=== PATIENT | male | born 1970 | race Caucasian/White ===

== ENCOUNTER → 2016-05-24 | Outpatient (CLI) | payer BC ==
--- NOTE | 2016-05-28 10:47 | ECHOF ---
Referral Reason:R07.89 chest pain MEASUREMENTS -------- HEIGHT: 188.0 cm WEIGHT: 99.8 kg BP: IVSd: 1.3 cm (0.6 - 1.1) LVIDd: 3.4 cm (3.9 - 5.3) LVPWd: 1.5 cm (0.6 - 1.1) IVSs: 1.8 cm LVIDs: 2.0 cm LVPWs: 2.0 cm Ao Diam: 3.4 cm (2.0 - 3.7) AV Cusp: 2.2 cm (1.5 - 2.6) LA Diam: 2.9 cm (2.7 - 3.8) MV EXCURSION: 14.230 mm (> 18.000) MV EF SLOPE: 83 mm/s (70 - 150) EPSS: 0.5 cm MV E Vincent: 1.06 m/s MV DecT: 244 ms MV A Vincent: 0.93 m/s MV E/A Ratio: 1.15 RAP: 5.00 mmHg RVSP: 17.98 mmHg FINDINGS -------- Sinus rhythm. This was a technically good study. There is moderate concentric left ventricular hypertrophy. Overall left ventricular systolic function is normal with, an EF between 55 - 60 %. The right ventricle is normal in size. The left atrium is normal in size. The right atrium is normal in size. The aortic valve is trileaflet, and appears structurally normal. No aortic stenosis or regurgitation. The mitral valve leaflets are mildly thickened. There is trace mitral regurgitation. Trace tricuspid regurgitation present. The right ventricular systolic pressure, as measured by Doppler, is 17.98mmHg. Pulmonic valve appears structurally normal. The aortic root size is normal. The pericardium is normal. CONCLUSIONS -------- 1. Sinus rhythm. 2. There is trace mitral regurgitation. 3. Trace tricuspid regurgitation present. 4. The right ventricular systolic pressure, as measured by Doppler, is 17.98mmHg. 5. Pulmonic valve appears structurally normal. 6. The aortic root size is normal. 7. The pericardium is normal. 8. This was a technically good study. 9. There is moderate concentric left ventricular hypertrophy. 10. Overall left ventricular systolic function is normal with, an EF between 55 - 60 %. 11. The right ventricle is normal in size. 12. The left atrium is normal in size. 13. The right atrium is normal in size. 14. The aortic valve is trileaflet, and appears structurally normal. No aortic stenosis or regurgitation. 15. The mitral valve leaflets are mildly thickened. PRINCIPAL CONSULTANT: Mariama Lindsey RDCS
== END | disposition home or self-care (01) ==
LOC: RADECHMAIN 13:43
PROVIDERS: ATTEND Family Medicine
DX: I08.1 Rheumatic disorders of both mitral and tricuspid valves (principal)
CPT/HCPCS: 93306

== ENCOUNTER → 2017-03-15 | Outpatient (CLI) | payer BC, OTHER ==
--- NOTE | 2017-03-15 13:16 | US ---
EXAMINATION TYPE: US venous doppler duplex LE RT DATE OF EXAM: 03/15/2017 12:57 PM COMPARISON: NONE CLINICAL HISTORY: M79.661 PAIN IN RT LOWER LIMB. No pain or swelling. No redness. No hx of blood cl ots or on blood thinners. SIDE PERFORMED: Right TECHNIQUE: The lower extremity deep venous system is examined utilizing real time linear array sonog yadi with graded compression, doppler sonography and color-flow sonography. VESSELS IMAGED: External Iliac Vein (EIV) Common Femoral Vein Deep Femoral Vein Greater Saphenous Vein * Femoral Vein Popliteal Vein Small Saphenous Vein * Proximal Calf Veins (* superficial vessels) Grayscale, color doppler, spectral doppler imaging performed of the deep veins of the lower extremiti es. There is normal flow, compressibility, vascular waveforms. Right Leg: Negative for DVT IMPRESSION: No sonographic evidence of deep venous arthrosis within the right lower extremity.
== END | disposition home or self-care (01) ==
LOC: RADUSWWP 12:12
PROVIDERS: ATTEND Family Medicine
DX: M79.661 Pain in right lower leg (principal)

== ENCOUNTER → 2019-03-19 | Outpatient (CLI) | payer BC ==
--- NOTE | 2019-03-20 08:46 | XR ---
EXAMINATION TYPE: XR chest 2V DATE OF EXAM: 03/19/2019 COMPARISON: 10/05/2014 HISTORY: Hemoptysis and shortness of breath TECHNIQUE: Frontal and lateral views of the chest are obtained. FINDINGS: There is no focal air space opacity, pleural effusion, or pneumothorax seen. The lateral v iew demonstrates some peribronchial cuffing. The cardiac silhouette size is within normal limits. T he osseous structures are intact. IMPRESSION: Peribronchial cuffing seen on the lateral view only minimally can relate to reactive air way disease or bronchitis.
== END | disposition home or self-care (01) ==
LOC: RADXRMAIN 16:10
PROVIDERS: ATTEND Nurse Practitioner Family
DX: R91.8 Other nonspecific abnormal finding of lung field (principal); R06.02 Shortness of breath; R04.2 Hemoptysis
CPT/HCPCS: 71046

== ENCOUNTER → 2020-04-24 | Outpatient (CLI) | payer BC ==
--- NOTE | 2020-04-24 16:35 | CONS ---
CONSULTATION DATE OF SERVICE: 04/24/2020 This 49-year-old gentleman had been evaluated in Sleep Center for obstructive sleep apnea-hypopnea syndrome and excessive daytime sleepiness. HISTORY OF PRESENT ILLNESS/SLEEP-WAKE EVALUATION: Patient had been diagnosed with obstructive sleep apnea in the past, many years ago, was tried on treatment with CPAP, but he was not able to tolerate it at that time. Presently, his sleep schedule from 11 p.m. to 5 a.m. 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 During sleep, he has very loud snoring, witnessed episodes of stopped breathing during sleep. He grinds teeth. He has episodes of gasping for air, sweating. He wakes up from sleep several times with one episode of nocturia. In the morning, the patient wakes up tired, has difficulties to pay attention, falling asleep during the day, worries about his sleep, has problems with memory, concentration, irritability. [place] Sleepiness Scale significantly increased to 15. PAST MEDICAL HISTORY: Positive for hypertension, cardiomyopathy. PAST SURGICAL HISTORY: Left eye surgery in childhood, left shoulder surgery in 2004. MEDICATIONS: None at the present time. SOCIAL HISTORY: Positive for smoking; quit 12 years ago. Alcohol consumption none. FAMILY HISTORY: Asthma, epilepsy, sleep apnea, mental illness, diabetes, restless legs. REVIEW OF SYSTEMS: Loud snoring, multiple awakenings from sleep, sleepiness during the day. PHYSICAL EXAMINATION: GENERAL: gentleman without distress. VITAL SIGNS: BP 128/81, HR 74, RR 12, height 6 feet 4 inches, weight 226.6 pounds, temperature 97.1, oxygen saturation at room air 97%. HEENT: PERRLA, EOMI. Oropharynx extremely low position of soft palate, Mallampati 4, significant retrognathia. NECK: Wide at 18-1/2 inches in circumference. LUNGS: Clear to percussion and to auscultation. Good air exchange. No wheezing or rhonchi. HEART: S1, S2 regular. No murmurs, gallops, or rubs. ABDOMEN: Soft and nontender. Bowel sounds are present. No organomegaly appreciated. EXTREMITIES: No clubbing or cyanosis. BLOCK GREASER: Awake, alert, and oriented X3. Cranial nerves 2 to 7 intact. There is no fasciculation or atrophy. noted. No focal deficits observed. IMPRESSION: 1. Loud snoring, witnessed episodes of sleep apnea, history of obstructive sleep apnea in the past, extremely low position of soft palate, Mallampati 4, wide neck 18-1/2 inches in circumference, sleepiness, [place] Sleepiness Scale 15, obstructive sleep apnea-hypopnea syndrome. 2. Hypertension. 3. History of cardiomyopathy. 4. Status post rhinoplasty. 5. Status post left shoulder surgery. 6. Status post left eye surgery. PLAN: 1. Home sleep apnea test. 2. CPAP/BiPAP titration if sleep study confirms obstructive sleep apnea-hypopnea syndrome. 3. Preferable position during sleep on the side. 4. No driving if patient feels any sleepiness. 5. I will see patient for follow up visit to explain results of testing and following plan. Thank you very much for referring this patient for consultation. Sincerely, Dedrick Sam MD, PhD, FAASM Diplomat of [place] [employer] [place] [employer] Cabinet Assembler of [facility] [place] MMODL / JOSETTEN: [id number] /
== END | disposition home or self-care (01) ==
LOC: SLEEP 13:49
PROVIDERS: ATTEND Internal Medicine
DX: G47.33 Obstructive sleep apnea (adult) (pediatric) (principal); I10 Essential (primary) hypertension; Z99.89 Dependence on other enabling machines and devices; Z86.79 Personal history of other diseases of the circulatory system; Z98.890 Other specified postprocedural states
CPT/HCPCS: 99211

== ENCOUNTER → 2020-06-04 | Outpatient (CLI) | payer BC ==
--- NOTE | 2020-06-04 12:18 | SFUN ---
SLEEP CENTER FOLLOW UP NOTE DATE OF SERVICE: 06/04/2020 This 49-year-old gentleman had been followed in Sleep Center for treatment of obstructive sleep apnea-hypopnea syndrome with significant excessive daytime sleepiness. Recently, patient had a home sleep apnea test which showed apnea-hypopnea index 11.4 with oxygen desaturation to 83% and subsequently with symptoms of excessive daytime sleepiness, patient was started on treatment with CPAP. Today is his first visit after he started to use CPAP. According to patient, after he started to use CPAP, he feels more refreshed in the morning after awakenings from sleep, but at the same time he developed nightmares. The patient has history of nightmares many years ago, but he did not have it since that time after he started to use CPAP. I extensively discussed with the patient the possibility that CPAP increased the amount of REM sleep for patient with obstructive sleep apnea after sleep apnea started to be treated. We do not have a clear information about the amount of REM sleep before and after treatment because we did not do any polysomnogram. Patient had only home sleep apnea test. I checked his CPAP unit. Range of the pressure 5-18. The average pressure 11.7, usage 28 out of 29 and 21 out of 29 more than 4 hours. Average 5.6 hours per night. Leak is 14 L/minute which is borderline. Apnea-hypopnea index is 0.9, which is absolutely normal. [place] Sleepiness Scale slightly decreased to 15 before treatment to 13 today. MEDICATIONS: None. PHYSICAL EXAMINATION: GENERAL: Patient in no distress. VITAL SIGNS: BP 117/79, HR 77, RR 15, oxygen saturation at room air 96%, weight 226, temperature 98.0. HEENT: PERRLA, EOMI. Oropharynx extremely low position of soft palate. Mallampati 4 NECK: Supple, no JVD. Thyroid is not palpable. LUNGS: Clear to percussion and to auscultation. Good air exchange. No wheezing or rhonchi. HEART: S1, S2 regular. No murmurs, gallops, or rubs. ABDOMEN: Soft and nontender. Bowel sounds are present. No organomegaly appreciated. EXTREMITIES: No clubbing or cyanosis. 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 Cranial nerves 2 to 7 intact. There is no fasciculation or atrophy. noted. No focal deficits observed. IMPRESSION: 1. Mild obstructive sleep apnea-hypopnea syndrome by results of home sleep apnea test which might underestimate severity of sleep apnea. Patient improved his alertness on CPAP. He feels better after awakenings in the morning, but still continued to feel sleepiness during the day. [place] Sleepiness Scale was 13 today, previously was 15. 2. Patient his history of nightmares many years ago and he started to have nightmares after started treatment with CPAP, possibly relationship to changing amount of REM sleep on CPAP, but we can not analyze that no results of polysomnogram, patient home sleep apnea test. 3. History of cardiomyopathy. 4. Status post rhinoplasty. 5. Status post left shoulder surgery. 6. Status post left eye surgery. 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 I changed maximal pressure in the CPAP unit down to 13 cm of water, so now it is from 5-13 cm of water. 2. Patient will continue to use PAP equipment every night for the whole night. 3. Sleep hygiene with regular time in bed for at least 7-1/2 to 8 hours. 4. Precautions related to driving. No driving if feeling sleepiness. 5. I will maintain all necessary prescription for PAP supplies including mask, tube, filters. 6. Watching weight. 7. Follow-up visit in 2 months or earlier if patient has any problems. 8. Patient could be a candidate for PSG on CPAP with the following multiple sleep latency test as he continued to feel sleepiness during the day. Thank you very much for allowing me to participate in management of your patient. Sincerely, Dedrick Sam MD, PhD, FAASM Diplomat of [place] [employer] [place] [employer] Government Employee of [facility] [place] MMODL / JOSETTEN: [id number] /
== END | disposition home or self-care (01) ==
LOC: SLEEP 10:31
PROVIDERS: ATTEND Internal Medicine
DX: G47.33 Obstructive sleep apnea (adult) (pediatric) (principal); Z99.89 Dependence on other enabling machines and devices; Z98.890 Other specified postprocedural states; Z86.79 Personal history of other diseases of the circulatory system; Z86.59 Personal history of other mental and behavioral disorders

== ENCOUNTER → 2020-07-23 | Outpatient (CLI) | payer BC ==
--- NOTE | 2020-07-23 23:13 | SFUN ---
SLEEP CENTER FOLLOW UP NOTE DATE OF SERVICE: 07/23/2020 The 49-year-old gentleman had been followed in Sleep Center for treatment of obstructive sleep apnea-hypopnea syndrome. The patient has significant problems with his CPAP treatment because there is a leak from the mask to the eye area. He is using an AirFit N30 under the nose mask and although it is under the nose, but for some reason he still has leak to the eye area. I checked his CPAP unit. Range of the pressure 5-13, average 11.8, usage is 18 out of 30 nights for more than 4 hours, average 6.8 hours per night. Leak is 8 L/minute which is acceptable. Apnea-hypopnea index 0.7, which is totally normal. [place] Sleepiness Scale is 10. PHYSICAL EXAM: Patient in no distress. BP 151/94, HR 67, RR 16, weight 227.8, temperature 98.1. Oxygen saturation at room air 98%. HEENT: PERRLA, EOMI. Oropharynx extremely low position of soft palate. Mallampati 4. NECK: Supple, no JVD. Thyroid is not palpable. LUNGS: Clear to percussion and to auscultation. Good air exchange. No wheezing or rhonchi. HEART: S1, S2 regular. No murmurs, gallops, or rubs. ABDOMEN: Soft and nontender. Bowel sounds are present. No organomegaly appreciated. EXTREMITIES: No clubbing or cyanosis. 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 Cranial nerves 2 to 7 intact. There is no fasciculation or atrophy. noted. No focal deficits observed. IMPRESSION: 1. Obstructive sleep apnea-hypopnea syndrome. The patient has problems with a CPAP mask secondary to leak to the eye area. Normal aspiration with the machine. 2. History of nightmares. 3. History of cardiomyopathy. 4. Status post rhinoplasty. 5. Status post left shoulder surgery. 6. Status post left eye surgery. 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 Fit patient with a different mask which has nasal pillows. Subsequently should prevent any leak from the mask to the eye area. We gave the patient a sample of that mask, it is a Fit B30 nasal pillows. 2. Patient will continue to use PAP equipment every night for the whole night. 3. Sleep hygiene with regular time in bed for at least 7-1/2 to 8 hours. 4. Precautions related to driving. No driving if feeling sleepiness. 5. I will maintain all necessary prescription for PAP supplies including mask, tube, filters. 6. Watching weight. 7. Follow-up visit in 6 months or earlier if patient has any problems. Thank you very much for allowing me to participate in management of your patient. Sincerely, Dedrick Sam MD, PhD, FAASM Diplomat of [place] [employer] [place] [employer] Door Closer Mechanic of [facility] [place] MMODL / JOSETTEN: [id number] /
== END ==
LOC: SLEEP 11:02
PROVIDERS: ATTEND Internal Medicine
DX: G47.33 Obstructive sleep apnea (adult) (pediatric) (principal); F51.5 Nightmare disorder; Z98.890 Other specified postprocedural states; Z86.79 Personal history of other diseases of the circulatory system; Z91.041 Radiographic dye allergy status; Z87.891 Personal history of nicotine dependence

== ENCOUNTER 2020-11-14 15:56 | Emergency (ER) | payer BC ==
[2020-11-14 17:10] VITALS: TEMP 98.3
[2020-11-14] MEDS ORDERED: MORPHINE SULFATE 2 MG/ML SYRINGE IVP STA (17:58)
[2020-11-14 18:22] LABS: Basophils % (A) 0 %; Eosinophils # (A) 0.2 k/uL (0-0.7); Eosinophils % (A) 3 %; HCT 43.8 % (39.0-53.0); HGB 15.1 gm/dL (13.0-17.5); Lymphocytes # (A) 2.6 k/uL (1.0-4.8); Lymphocytes % (A) 34 %; MCH 30.8 pg (25.0-35.0); MCHC 34.5 g/dL (31.0-37.0); MCV 89.4 fL (80.0-100.0); Mean Platelet Volume 8.1; Monocytes # (A) 0.5 k/uL (0-1.0); Monocytes % (A) 6 %; Neutrophils # (A) 4.2 k/uL (1.3-7.7); Neutrophils % (A) 55 %; Platelet Count 213 k/uL (150-450); WBC 7.6 k/uL (3.8-10.6)
[2020-11-14 18:30] LABS: ALT 51 U/L (4-49); AST 31 U/L (17-59); African American GFR (CKD) >90 (>60 ml/min/1.73 sqM); Albumin 4.8 g/dL (3.5-5.0); Alkaline Phosphatase 92 U/L (38-126); Anion Gap 10 mmol/L; Blood Urea Nitrogen 16 mg/dL (9-20); Calcium 9.8 mg/dL (8.4-10.2); Carbon Dioxide 25 mmol/L (22-30); Chloride 103 mmol/L (98-107); Glucose 95 mg/dL (74-99); Non-African American GFR(CKD) >90 (>60 ml/min/1.73 sqM); Potassium 3.9 mmol/L (3.5-5.1); Sodium 138 mmol/L (137-145); Total Bilirubin 0.5 mg/dL (0.2-1.3); Total Protein 7.5 g/dL (6.3-8.2)
[2020-11-14 18:33] LABS: Partial Thromboplastin Time 22.8 sec (22.0-30.0); Prothrombin Time 10.4 sec (9.0-12.0)
[2020-11-14] MEDS ORDERED: diphenhydrAMINE 50 MG/ML 1 ML VIAL IVP STA (19:26)
[2020-11-14] MEDS ORDERED: FAMOTIDINE 20 MG/2 ML VIAL IV STA (19:26)
[2020-11-14] MEDS ORDERED: methylPREDNISolone SOD SUCCI 125 MG/2 ML VIAL IV STA (19:26)
--- NOTE | 2020-11-14 21:04 | CT ---
EXAMINATION TYPE: CT angio thor/abd pel aorta DATE OF EXAM: 11/14/2020 COMPARISON: Chest radiograph 03/19/2019 HISTORY: concern for aortic dissection CT DLP: 1283.2 mGycm. Automated Exposure Control for Dose Reduction was Utilized. CONTRAST: CT scan of the thorax, abdomen and pelvis is performed with IV Contrast, patient injected with 100 mL of Isovue 370. FINDINGS: LUNGS: The lungs are grossly clear, there is no concerning parenchymal mass or nodule identified. T here is no pleural effusion or pneumothorax seen. Subcutaneous emphysematous changes. The tracheobro nchial tree is patent. MEDIASTINUM: There are no greater than 1 cm hilar or mediastinal lymph nodes. No pericardial effusi on is seen. No aortic dissection flap, intramural hematoma or aneurysm. OTHER: No additional significant abnormality is seen. LIVER/GB: No significant abnormality is appreciated. PANCREAS: No significant abnormality is seen. SPLEEN: No significant abnormality is seen. ADRENALS: No significant abnormality is seen. KIDNEYS: No significant abnormality is seen. BOWEL: No significant abnormality is seen. GENITAL ORGANS: No gross abnormality seen. LYMPH NODES: No greater than 1cm abdominal or pelvic lymph nodes are appreciated. OSSEOUS STRUCTURES: No significant abnormality is seen. OTHER: No significant additional abnormality is seen. IMPRESSION: 1. No aortic dissection flap, intramural hematoma or aneurysm. 2. No acute osseous fracture, abnormal fluid collection, or evidence of solid organ injury in the th orax, abdomen, or pelvis.
--- NOTE | 2020-11-14 21:19 | ED ---
General Adult HPI - General Chief complaint: Chest Pain Stated complaint: Chest and arm pain Time Seen by Provider: 11/14/20 17:37 Source: patient, RN notes reviewed, old records reviewed Mode of arrival: wheelchair Limitations: no limitations - History of Present Illness Initial comments: I evaluated the patient when he was placed in a room. Patient is a 50-year-old male with past medical history remarkable for myocarditis from some years ago he presents emergency Department with 2 complaints. He is describing approximately 3 hours prior to arrival a chest pain that he describes as a sharp sensation with radiation towards his back between the shoulder blades. He is also complaining of some left-sided shoulder pain with an electrical sensation shooting down his left arm towards his fingertips. Denies any neck pain. Denies any shortness of breath. 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 States he does not believe he has had these symptoms before. Denies any shortness of breath, fevers, cough, sick contacts. Denies any abdominal pain, nausea, vomiting. Denies any lightheadedness, numbness, weakness. He otherwise has no acute complaints at this time. He describes the pain as a sharp, achy sensation in his chest with radiation as above. Patient presents over concern for possible cardiac etiology. - Related Data Home Medications Medication Instructions Recorded Confirmed Chlorhexidine Gluconate [Peridex] 1 applic DENTAL BID 11/14/20 11/14/20 Multivitamins, Thera [Multivitamin 1 tab PO DAILY 11/14/20 11/14/20 (formulary)] Allergies Allergy/AdvReac Type Severity Reaction Status Date / Time Iodinated Contrast Media Allergy Unknown Verified 11/14/20 18:32 [Iodinated Contrast Media - IV Dye] Review of Systems ROS Statement: Those systems with pertinent positive or pertinent negative responses have been documented in the HPI. Review of Systems: CONST: Denies fever EYES: Denies blurry vision ENT: Denies nasal congestion C/V: Endorses chest pain RESP: Denies shortness of breath GI: Denies abdominal pain : Denies dysuria SKIN: Denies rash. MSK: Endorses left arm pain NEURO: Denies headache ROS Other: All systems not noted in ROS Statement are negative. Past Medical History Past Medical History: Skin Disorder, Sleep Apnea/CPAP/BIPAP Additional Past Medical History / Comment(s): cpap machine broke, "heartburn at times", hemorroids, lt lazy eye, "staph infection scalp,stated its not mrsa), diet controlled hyperlipidemia, kidney stones, cardiomyopathy History of Any Multi-Drug Resistant Organisms: None Reported Past Surgical History: Adenoidectomy, Orthopedic Surgery, Tonsillectomy Additional Past Surgical History / Comment(s): lt eye surgery, lt shoulder sx removed inch oc cllarbones and has titaium pin in place", lt wrist sx,bx on scalp-neg, stomach polyps, deviated septum sx, egd/colonoscpy. Past Anesthesia/Blood Transfusion Reactions: No Reported Reaction Past Psychological History: No Psychological Hx Reported Smoking Status: Never smoker Past Alcohol Use History: Occasional Past Drug Use History: None Reported - Past Family History Father Family Medical History: No Reported History Mother Family Medical History: Hypertension Additional Family Medical History / Comment(s): diverticulisits Sister(s) Additional Family Medical History / Comment(s): ibs General Exam - General Exam Comments Initial Comments: General: Appears in no acute distress. HEAD: Normal with no signs of head trauma. EYES: PERRLA, EOMI, conjunctiva normal, no discharge. ENT: Hearing grossly intact, normal oropharynx. RESPIRATORY: Clear breath sounds bilaterally. No wheezes, rales, or rhonchi. C/V: Regular rate and rhythm. S1 and S2 auscultated, no edema, peripheral pulses 2+ and intact throughout, chest pain is mildly reproducible on palpation. ABD: Abd is soft, nontender, nondistended EXT: Normal range of motion, no obvious deformity. No tenderness palpation of the left upper extremity. he is neurovascularly intact throughout. SKIN: No rashes or lesions observed on exposed skin. NEURO: Alert and oriented x 4. Cranial nerves II-XII intact. No focal sensory or strength deficits. Limitations: no limitations Course Vital Signs 11/14/20 11/14/20 11/14/20 17:06 17:24 20:09 Temperature 98.3 F Pulse Rate 72 67 60 Respiratory 20 20 20 Rate Blood Pressure 157/96 146/98 130/91 O2 Sat by Pulse 98 98 97 Oximetry 11/14/20 21:25 Temperature Pulse Rate 64 Respiratory 18 Rate Blood Pressure 132/87 O2 Sat by Pulse 97 Oximetry Medical Decision Making - Medical Decision Making Based on the patient's presentation and physical exam, I'm concerned for possible cardiac etiology for his current symptoms. Based on patient's story with radiation to his back of his chest pain with associated what appears to be a neurological etiology for his left arm pain, I'm concerned for possible aortic dissection. Therefore we will obtain CTA imaging the chest abdomen pelvis to rule out dissection. We will also obtain a cardiac workup including troponin, EKG, chest x-ray and basic labs. He'll be given morphine for his chest pain at this time, as aspirin will be held pending further workup over concern for possible dissection. He was in agreement this plan. He'll be connected to continuous cardiac crying while he is in the department. Patient's EKG shows no signs of acute ischemia. Patient's lavatory studies are remarkable for a negative troponin and otherwise normal workup. Patient's CTA reveals no aortic dissection flap hematoma or aneurysm. There is no acute etiology or injury seen. On reevaluation, patient's laboratory studies were discussed with the patient as well as his imaging. States this chest pain is improved. His arm pain is also improved. Troponin was obtained greater than 3 hours after arrival therefore do not believe that he requires a second one. Heart score is 2 for age and story. This is low and I do believe it is safer to be discharged home at this time with close follow-up. He was in agreement this plan. I instructed the patient to follow up with their PCP in the next 3 days. I explained that the patient should return to the emergency department if they experience any worsening symptoms. Strict return precautions were discussed with the patient. The patient expressed understanding of these instructions. I answered all questions that the patient had. The patient was discharged home in good condition with their prescriptions and follow up information. - Lab Data Result diagrams: 11/14/20 18:01 11/14/20 18:01 Lab Results 11/14/20 11/14/20 11/14/20 Range/Units 18: 18: 18: WBC 7.6 (3.8-10.6) k/uL RBC 4.90 (4.30-5.90) m/uL Hgb 15.1 (13.0-17.5) gm/dL Hct 43.8 (39.0-53.0) % MCV 89.4 (80.0-100.0) fL MCH 30.8 (25.0-35.0) pg MCHC 34.5 (31.0-37.0) g/dL RDW 12.0 (11.5-15.5) % Plt Count 213 (150-450) k/uL MPV 8.1 Neutrophils % 55 % Lymphocytes % 34 % Monocytes % 6 % Eosinophils % 3 % Basophils % 0 % Neutrophils # 4.2 (1.3-7.7) k/uL Lymphocytes # 2.6 (1.0-4.8) k/uL Monocytes # 0.5 (0-1.0) k/uL Eosinophils # 0.2 (0-0.7) k/uL Basophils # 0.0 (0-0.2) k/uL PT 10.4 (9.0-12.0) sec INR 1.0 (<1.2) APTT 22.8 (22.0-30.0) sec Sodium 138 (137-145) mmol/L Potassium 3.9 (3.5-5.1) mmol/L Chloride 103 (98-107) mmol/L Carbon Dioxide 25 (22-30) mmol/L Anion Gap 10 mmol/L BUN 16 (9-20) mg/dL Creatinine 0.86 (0.66-1.25) mg/dL Est GFR (CKD-EPI)AfAm >90 (>60 ml/min/1.73 sqM) Est GFR (CKD-EPI)NonAf >90 (>60 ml/min/1.73 sqM) Glucose 95 (74-99) mg/dL Calcium 9.8 (8.4-10.2) mg/dL Magnesium 2.0 (1.6-2.3) mg/dL Total Bilirubin 0.5 (0.2-1.3) mg/dL AST 31 (17-59) U/L ALT 51 H (4-49) U/L Alkaline Phosphatase 92 (38-126) U/L Troponin I (0.000-0.034) ng/mL Total Protein 7.5 (6.3-8.2) g/dL Albumin 4.8 (3.5-5.0) g/dL 11/14/20 Range/Units 18:01 WBC (3.8-10.6) k/uL RBC (4.30-5.90) m/uL Hgb (13.0-17.5) gm/dL Hct (39.0-53.0) % MCV (80.0-100.0) fL MCH (25.0-35.0) pg MCHC (31.0-37.0) g/dL RDW (11.5-15.5) % Plt Count (150-450) k/uL MPV Neutrophils % % Lymphocytes % % Monocytes % % Eosinophils % % Basophils % % Neutrophils # (1.3-7.7) k/uL Lymphocytes # (1.0-4.8) k/uL Monocytes # (0-1.0) k/uL Eosinophils # (0-0.7) k/uL Basophils # (0-0.2) k/uL PT (9.0-12.0) sec INR (<1.2) APTT (22.0-30.0) sec Sodium (137-145) mmol/L Potassium (3.5-5.1) mmol/L Chloride (98-107) mmol/L Carbon Dioxide (22-30) mmol/L Anion Gap mmol/L BUN (9-20) mg/dL Creatinine (0.66-1.25) mg/dL Est GFR (CKD-EPI)AfAm (>60 ml/min/1.73 sqM) Est GFR (CKD-EPI)NonAf (>60 ml/min/1.73 sqM) Glucose (74-99) mg/dL Calcium (8.4-10.2) mg/dL Magnesium (1.6-2.3) mg/dL Total Bilirubin (0.2-1.3) mg/dL AST (17-59) U/L ALT (4-49) U/L Alkaline Phosphatase (38-126) U/L Troponin I <0.012 (0.000-0.034) ng/mL Total Protein (6.3-8.2) g/dL Albumin (3.5-5.0) g/dL - EKG Data -: EKG Interpreted by Me EKG Comments: 12-lead Electrocardiogram Interpretation Note EKG was reviewed and interpreted by myself. 12-lead ECG performed at 1602 is interpreted by me as revealing normal sinus rhythm at a rate of 86 beats per minute. Huger is normal. LA intervals 150 ms, QRS duration is 92 ms, QTc is 447 ms.. There were no ST or T wave abnormalities to suggest myocardial ischemia or injury. R wave progression across the precordium was satisfactory. By my interpretation this EKG is non-diagnostic for acute ischemia. Disposition Clinical Impression: Chest pain of unknown etiology, Left shoulder pain, Radicular pain in left arm Disposition: HOME SELF-CARE Condition: Good Instructions (If sedation given, give patient instructions): Chest Pain (ED), Cervical Radiculopathy (ED) Is patient prescribed a controlled substance at d/c from ED?: No Referrals: Marco Lorenz MD [Primary Care Provider] - 1-2 days
[2020-11-14 21:27] VITALS: BP 132/87; PULSE 64; RESP 18
== END 2020-11-14 21:27 | disposition home or self-care (01) ==
LOC: EC 15:56
DX: R07.89 Other chest pain (principal); M25.512 Pain in left shoulder; E78.5 Hyperlipidemia, unspecified; Z91.041 Radiographic dye allergy status; Z87.442 Personal history of urinary calculi; Z90.89 Acquired absence of other organs
CPT/HCPCS: 99285; 96374; 96375 ×3; 36415; 93005; 80053; 83735; 84484; 85025; 85610; 85730; 71275; 74174; J1200; J2930; J2270; Q9967

== ENCOUNTER → 2021-09-11 | Outpatient (CLI) | payer BC ==
--- NOTE | 2021-09-11 13:11 | US ---
EXAMINATION TYPE: US venous doppler duplex LE RT DATE OF EXAM: 09/11/2021 1:01 PM COMPARISON: US CLINICAL HISTORY: M79.661 RT CALF PAIN. Pt states right calf pain, no known prior DVT SIDE PERFORMED: Right TECHNIQUE: The lower extremity deep venous system is examined utilizing real time linear array sonog yadi with graded compression, doppler sonography and color-flow sonography. VESSELS IMAGED: Common Femoral Vein Deep Femoral Vein Greater Saphenous Vein * Femoral Vein Popliteal Vein Small Saphenous Vein * Proximal Calf Veins (* superficial vessels) Right Leg: Negative for DVT Attempted to call Dr's office with results at time of exam- no answer IMPRESSION: No evidence for DVT at this time.
[2021-09-11 22:31] LABS: African American GFR (CKD) 90.2 (60.0-200.0); Albumin 4.1 g/dL (3.8-4.9); Albumin/Globulin Ratio 2.05 (1.60-3.17); Anion Gap 9.6 mmol/L (10.00-18.00); BUN/Creat Ratio 11.18 Ratio (12.00-20.00); Blood Urea Nitrogen 12.3 mg/dL (9.0-27.0); Carbon Dioxide 25.4 mmol/L (20.0-27.5); Magnesium 2.1 mg/dL (1.5-2.4); Non-African American GFR(CKD) 77.9 (60.0-200.0); Potassium 4.1 mmol/L (3.5-5.5); Total Bilirubin 0.4 mg/dL (0.30-1.20); Total Protein 6.1 g/dL (6.2-8.2)
== END | disposition home or self-care (01) ==
LOC: RADUSWWP 12:44
PROVIDERS: ATTEND Family Medicine
DX: M79.661 Pain in right lower leg (principal)
CPT/HCPCS: 80053; 83735

== ENCOUNTER 2021-09-28 12:32 | Emergency (ER) | payer BC, OTHER ==
[2021-09-28 12:40] VITALS: RESP 18; TEMP 98.8
--- NOTE | 2021-09-28 13:12 | ED ---
General Adult HPI - General Chief complaint: Extremity Injury, Lower Stated complaint: [facility]-right leg injury Time Seen by Provider: 09/28/21 12:32 Source: patient, EMS, RN notes reviewed, old records reviewed Mode of arrival: EMS Limitations: no limitations - History of Present Illness Initial comments: This is a 51-year-old male who presents emergency Department complaining that a 200 pound pipe landed on his right lower leg. Patient complains of a little pain medial to the right knee as well as in the proximal tib-fib area. Patient did receive 100 mics of fentanyl from EMS and the way in. Patient denies any ankle pain. Patient's any hip pain. Patient denies any chest pain difficulty breathing or shortness of breath per patient denies any other injury at this time. - Related Data Home Medications Medication Instructions Recorded Confirmed Albuterol Sulfate [Albuterol 1 - 2 puff INHALATION RT-Q4H PRN 09/28/21 09/28/21 Sulfate Hfa] Previous Rx's Medication Instructions Recorded Ibuprofen [Motrin] 600 mg PO Q6HR PRN #20 tab 09/28/21 Allergies Allergy/AdvReac Type Severity Reaction Status Date / Time Iodinated Contrast Media Allergy gets red Verified 09/28/21 13:53 [Iodinated Contrast Media - and hot IV Dye] Review of Systems ROS Statement: Those systems with pertinent positive or pertinent negative responses have been documented in the HPI. ROS Other: All systems not noted in ROS Statement are negative. Past Medical History Past Medical History: Skin Disorder, Sleep Apnea/CPAP/BIPAP Additional Past Medical History / Comment(s): cpap machine broke, "heartburn at times", hemorroids, lt lazy eye, "staph infection scalp,stated its not mrsa), diet controlled hyperlipidemia, kidney stones, cardiomyopathy History of Any Multi-Drug Resistant Organisms: None Reported Past Surgical History: Adenoidectomy, Orthopedic Surgery, Tonsillectomy Additional Past Surgical History / Comment(s): lt eye surgery, lt shoulder sx removed inch oc cllarbones and has titaium pin in place", lt wrist sx,bx on scalp-neg, stomach polyps, deviated septum sx, egd/colonoscpy. Past Anesthesia/Blood Transfusion Reactions: No Reported Reaction Past Psychological History: No Psychological Hx Reported Smoking Status: Never smoker Past Alcohol Use History: Occasional Past Drug Use History: None Reported - Past Family History Father Family Medical History: No Reported History Mother Family Medical History: Hypertension Additional Family Medical History / Comment(s): diverticulisits Sister(s) Additional Family Medical History / Comment(s): ibs General Exam - General Exam Comments Initial Comments: GENERAL: Patient is well-developed and well-nourished. Patient is nontoxic and well- hydrated and is in mild distress. ENT: Neck is soft and supple. No significant lymphadenopathy is noted. Oropharynx is clear. Moist mucous membranes. Neck has full range of motion without elic iting any pain. EYES: The sclera were anicteric and conjunctiva were pink and moist. Extraocular movements were intact and pupils were equal round and reactive to light. Eyelids were unremarkable. PULMONARY: Unlabored respirations. Good breath sounds bilaterally. No audible rales rhonchi or wheezing was noted. CARDIOVASCULAR: There is a regular rate and rhythm without any murmurs gallops or rubs. SKIN: Skin is clear with no lesions or rashes and otherwise unremarkable. NEUROLOGIC: Patient is alert and oriented x3. Cranial nerves II through XII are grossly intact. Motor and sensory are also intact. Normal speech, volume and content. Symmetrical smile. MUSCULOSKELETAL: Normal extremities with adequate strength and full range of motion. Patient has tenderness in the proximal medial aspect of the leg or so on the soft tissues and on the bone. Patient full range of motion of the knee there is some medial tenderness on the distal femur. LYMPHATICS: No significant lymphadenopathy is noted PSYCHIATRIC: Normal psychiatric evaluation. Limitations: no limitations Course Vital Signs 09/28/21 12:35 Temperature 98.8 F Pulse Rate 69 Respiratory 18 Rate Blood Pressure 149/94 O2 Sat by Pulse 95 Oximetry Medical Decision Making - Medical Decision Making X-ray of the knee and tib-fib were negative for any fractures. Patient remained exquisitely tender to the medial aspect of the knee however he had no ligamentous laxity. Patient was able to ambulate Disposition Clinical Impression: Contusion, knee Disposition: HOME SELF-CARE Condition: Good Instructions (If sedation given, give patient instructions): Contusion in Adults (ED) Additional Instructions: Patient should return to the emergency department as any pain distal to the injury or change in color or temperature. Patient is to follow up with orthopedics symptoms do not improve. Prescriptions: Ibuprofen [Motrin] 600 mg PO Q6HR PRN #20 tab PRN Reason: For pain Is patient prescribed a controlled substance at d/c from ED?: No Referrals: Dereck Campos MD [Medical Doctor] - 1-2 days Davidson Cornejo Jr, DO [Primary Care Provider] - 1-2 days Time of Disposition: 14:49
--- NOTE | 2021-09-28 13:15 | XR ---
EXAMINATION TYPE: XR tibia fibula RT DATE OF EXAM: 09/28/2021 COMPARISON: None HISTORY: Blunt trauma to injury 200 pipe TECHNIQUE: 2 view right tibia and fibula FINDINGS: No acute fracture or dislocation is evident. Joint spaces appear preserved. Soft tissues ap pear unremarkable. Follow up exams can be performed in 7-10 days from acute trauma for continued pain. IMPRESSION: 1. No acute osseous abnormality.
--- NOTE | 2021-09-28 13:17 | XR ---
EXAMINATION TYPE: XR knee complete RT DATE OF EXAM: 09/28/2021 COMPARISON: None HISTORY: Blunt trauma crushing injury TECHNIQUE: 3 view right knee FINDINGS: No acute fracture or dislocation is evident. Joint spaces are preserved. No joint effusion is evident. Follow up exams can be performed 7-10 days from acute trauma for continued pain. IMPRESSION: 1. No acute osseous abnormality right knee
[2021-09-28] MEDS ORDERED: KETOROLAC 15 MG/ML 1 ML VIAL IVP STA (13:55)
[2021-09-28 15:23] VITALS: BP 126/78; PULSE 60
== END 2021-09-28 15:05 | disposition home or self-care (01) ==
LOC: EC 12:32
DX: S80.01XA Contusion of right knee, initial encounter (principal); Z91.041 Radiographic dye allergy status; W20.8XXA Other cause of strike by thrown, projected or falling object, initial encounter
CPT/HCPCS: 73590; 73562; 99283; 96374; J1885

== ENCOUNTER → 2021-10-06 | Outpatient (CLI) | payer BC ==
--- NOTE | 2021-10-06 15:46 | US ---
EXAMINATION TYPE: US venous doppler duplex LE RT DATE OF EXAM: 10/06/2021 3:42 PM COMPARISON: 09/11/2021 CLINICAL HISTORY: M25.561 PAIN IN RT KNEE. SIDE PERFORMED: TECHNIQUE: The lower extremity deep venous system is examined utilizing real time linear array sonog yadi with graded compression, doppler sonography and color-flow sonography. VESSELS IMAGED: Common Femoral Vein Deep Femoral Vein Greater Saphenous Vein * Femoral Vein Popliteal Vein Small Saphenous Vein * Proximal Calf Veins (* superficial vessels) Right Leg: Negative for DVT IMPRESSION: No evidence for DVT at this time.
== END | disposition home or self-care (01) ==
LOC: RADUSWWP 15:20
PROVIDERS: ATTEND Orthopaedic Surgery
DX: M25.561 Pain in right knee (principal)

== ENCOUNTER → 2022-01-07 | Outpatient (CLI) | payer BC ==
[2022-01-07 23:34] LABS: Protein, Total 5.7 g/dL (6.2-8.2)
[2022-01-07 23:52] LABS: T4, Free (Free Thyroxine) 1.04 ng/dL (0.800-1.800)
[2022-01-08 03:54] LABS: Anti-DNA, DS unit <1.0 IU/mL; DNA Double-Stranded NEGATIVE (NEGATIVE)
== END | disposition home or self-care (01) ==
LOC: LABWHC1 15:09
PROVIDERS: ATTEND Psychiatry & Neurology Neurology
DX: G62.9 Polyneuropathy, unspecified (principal); R53.1 Weakness; R20.0 Anesthesia of skin; R73.9 Hyperglycemia, unspecified
CPT/HCPCS: 36415; 82550; 82607; 82747; 83036; 84165; 84439; 84443; 85652; 86038; 86225; 86334; 86618

== ENCOUNTER → 2022-01-11 | Outpatient (CLI) | payer BC ==
--- NOTE | 2022-01-12 03:38 | MR ---
EXAMINATION TYPE: MR brain wo con DATE OF EXAM: 01/11/2022 COMPARISON: 11/07/2015 HISTORY: Loss of sensation in feet and right forearm and hand. Blurry vision, loss of strength and ba natalya. Multiplanar multiecho imaging of the brain without contrast. FINDINGS: The diffusion images show no sign of an acute infarct. Ventricles have normal size. There is no mass effect or midline shift. No sign of intracranial hemorrhage. The bueno and white matter structures hav e fairly normal signal pattern. No evidence of cerebral edema. Corpus callosum appears normal. Sella turcica is normal. Brainstem is intact. No evidence of orbital mass. Optic chiasm appears normal. IMPRESSION: Normal MR scan of the brain. No change compared to the old exam.
== END | disposition home or self-care (01) ==
LOC: RADMRIMAIN 17:22
PROVIDERS: ATTEND Psychiatry & Neurology Neurology
DX: R27.8 Other lack of coordination (principal)
CPT/HCPCS: 70551

== ENCOUNTER 2023-06-28 22:08 | Emergency (ER) | payer BC ==
--- NOTE | 2023-06-28 22:11 | ED ---
Chest Pain HPI - General Stated Complaint: Chest pain Time Seen by Provider: 06/28/23 22:10 Mode of arrival: EMS Limitations: no limitations, altered mental status - History of Present Illness Initial Comments: This is a 52-year-old male to the ER for evaluation significant distress coming in with syncopal event pale diaphoretic with dyspnea. Patient was found to be playing hockey by EMS as they were called as he did pass out allegedly while playing hockey. Patient does have significant history of cardiac disease and cardiomyopathy no travel history or sick contacts is recently been feeling unwel l with shortness of breath that is worse here in the emergency room today although he states with time he is improving. MD Complaint: chest pain, other (Syncope near syncope) -: hour(s) Onset: during exertion Pain Location: substernal, left chest Pain Radiation: RUE Severity: severe Severity scale (1-10): 10 Consistency: constant, now resolved (Symptoms improving) Improves With: nothing Worsens With: exertion Anginal Symptoms: diaphoresis, dyspnea, sense of impending doom Other Symptoms: syncope, palpitations Treatments Prior to Arrival: none - Related Data Home Medications Medication Instructions Recorded Confirmed No Known Home Medications 06/21/22 06/21/22 Allergies Allergy/AdvReac Type Severity Reaction Status Date / Time Iodinated Contrast Media Allergy gets red Verified 06/28/23 22:29 [Iodinated Contrast Media - and hot IV Dye] Review of Systems ROS Statement: Those systems with pertinent positive or pertinent negative responses have been documented in the HPI. ROS Other: All systems not noted in ROS Statement are negative. EKG Findings - EKG Comments: EKG Findings:: EKG is sinus 86 MN 148 QRS 93 QTc 391 - EKG Results: EKG: interpreted by ERMD Past Medical History Past Medical History: Skin Disorder, Sleep Apnea/CPAP/BIPAP Additional Past Medical History / Comment(s): cpap machine broke, "heartburn at times", hemorroids, lt lazy eye, "staph infection scalp,stated its not mrsa), kidney stones, cardiomyopathy History of Any Multi-Drug Resistant Organisms: None Reported Past Surgical History: Adenoidectomy, Orthopedic Surgery, Tonsillectomy Additional Past Surgical History / Comment(s): lt eye surgery, lt shoulder sx removed inch oc cllarbones and has titaium pin in place", lt wrist sx,bx on scalp-neg, stomach polyps, deviated septum sx, egd/colonoscpy. Past Anesthesia/Blood Transfusion Reactions: No Reported Reaction Past Psychological History: No Psychological Hx Reported Smoking Status: Never smoker Past Alcohol Use History: Occasional Past Drug Use History: None Reported - Past Family History Father Family Medical History: No Reported History Mother Family Medical History: Hypertension Additional Family Medical History / Comment(s): diverticulisits Sister(s) Additional Family Medical History / Comment(s): ibs General Exam General appearance: anxious, in distress Head exam: Present: atraumatic, normocephalic, normal inspection Eye exam: Present: normal appearance, PERRL, EOMI. Absent: scleral icterus, conjunctival injection, periorbital swelling ENT exam: Present: normal exam, mucous membranes moist Neck exam: Present: normal inspection. Absent: tenderness, meningismus, lymphadenopathy Respiratory exam: Present: normal lung sounds bilaterally. Absent: respiratory distress, wheezes, rales, rhonchi, stridor Cardiovascular Exam: Present: regular rate, normal rhythm, normal heart sounds. Absent: systolic murmur, diastolic murmur, rubs, gallop, clicks GI/Abdominal exam: Present: soft, normal bowel sounds. Absent: distended, tenderness, guarding, rebound, rigid Extremities exam: Present: normal inspection, full ROM, normal capillary refill. Absent: tenderness, pedal edema, joint swelling, calf tenderness Back exam: Present: normal inspection Neurological exam: Present: alert, oriented X3, CN II-XII intact Psychiatric exam: Present: normal affect, normal mood Skin exam: Present: warm, dry, intact, normal color. Absent: rash Course Vital Signs 06/28/23 06/28/23 06/29/23 22:18 23:29 01:57 Temperature 98.6 F Pulse Rate 86 81 73 Respiratory 18 18 18 Rate Blood Pressure 124/84 112/83 O2 Sat by Pulse 96 96 98 Oximetry - Reevaluation(s) Reevaluation #1: Medical records reviewed Reevaluation #2: Patient symptoms improved Reevaluation #3: Patient informed of results and questions answered Studies Chest x-ray is negative for acute disease Reevaluation #4: Was pt. sent in by a medical professional or institution (, PA, SHUTTLE FILLER, urgent care, hospital, or halfway...) When possible be specific @ -no Did you speak to anyone other than the patient for history (EMS, parent, family, police, friend...)? What history was obtained from this source @ -no Did you review nursing and triage notes (agree or disagree)? Why? @ -agree Are old charts reviewed (outside hosp., previous admission, EMS record, old EKG, old radiological studies, urgent care reports/EKG's, halfway records)? Report findings @ -yes Differential Diagnosis (chest pain, altered mental status, abdominal pain women, abdominal pain men, vaginal bleeding, weakness, fever, dyspnea, syncope, headache, dizziness, GI bleed, back pain, seizure, CVA, palpatations, mental health, musculoskeletal)? @ -prior EKG interpreted by me (3pts min.). @ -yes X-rays interpreted by me (1pt min.). @ -yes negative for acute disease CT interpreted by me (1pt min.). @ -no U/S interpreted by me (1pt. min.). @ -no What testing was considered but not performed or refused? (CT, X-rays, U/S, labs)? Why? @ -none What meds were considered but not given or refused? Why? @ -none Did you discuss the management of the patient with other professionals (professionals i.e. , PA, SHUTTLE FILLER, lab, RT, psych nurse, social media marketing analyst, medical office assistant, teacher, supervisory cbp officer, rn case mgr)? Give summary @ -no Was smoking cessation discussed for >3mins.? @ -no Was critical care preformed (if so, how long)? @ -yes31 Were there social determinants of health that impacted care today? How? (Homelessness, low income, unemployed, alcoholism, drug addiction, trans portation, low edu. Level, literacy, decrease access to med. care, residential, rehab)? @ -none Was there de-escalation of care discussed even if they declined (Discuss DNR or withdrawal of care, Hospice)? DNR status @ -no What co-morbidities impacted this encounter? (DM, HTN, Smoking, COPD, CAD, Cancer, CVA, ARF, Chemo, Hep., AIDS, mental health diagnosis, sleep apnea, morbid obesity)? @ -none Was patient admitted / discharged? Hospital course, mention meds given and route, prescriptions, significant lab abnormalities, going to OR and other pertinent info. @ - 52-year-old male to the ER for evaluation significant history of cardiac disease with cardiomyopathy coming in for syncopal event syncopal with chest pain while playing hockey tonight. Patient states he lately is stayed away from playing hockey secondary to cardiac function but decided to give ago today and did pass out. Patient feels improved for his ER stay and refuses further evaluation, feels good for discharge home Discharge Undiagnosed new problem with uncertain prognosis? @ -no Drug Therapy requiring intensive monitoring for toxicity (Heparin, Nitro, Insulin, Cardizem)? @ -no Were any procedures done? @ -no Diagnosis/symptom? @ -Syncope chest pain CHF Acute, or Chronic, or Acute on Chronic? @ -Acute Uncomplicated (without systemic symptoms) or Complicated (systemic symptoms)? @ -Complicated Side effects of treatment? @ -no Exacerbation, Progression, or Severe Exacerbation? @ -exacerbation Poses a threat to life or bodily function? How? (Chest pain, [place], [place], pneumonia, PE, COPD, DKA, ARF, appy, cholecystitis, CVA, Diverticulitis, Homicidal, Suicidal, threat to staff... and all critical care pts) @ -yes with significant syncopal event Reevaluation #5: Differential Chest Pain: Stable Angina, Unstable Angina, STEMI, NSTEMI Aortic Dissection, Pneumothorax, Musculoskeletal, Esophageal Spasm GERD, Cholecystitis, Pancreatitis, Zoster, this is not meant to be an all-inclusive list. Chest Pain MDM - MDM 52-year-old male to the ER for evaluation significant history of cardiac disease with cardiomyopathy coming in for syncopal event syncopal with chest pain while playing hockey tonight. Patient states he lately is stayed away from playing hockey secondary to cardiac function but decided to give ago today and did pass out. Patient feels improved for his ER stay and refuses further evaluation, feels good for discharge home Critical Care Time Critical Care Time: Yes Total Critical Care Time: 31 Disposition Clinical Impression: Near syncope, Syncope, Arrhythmia, CHF (congestive heart failure), Chest pain, Syncope and collapse Disposition: HOME SELF-CARE Condition: Serious Instructions (If sedation given, give patient instructions): Syncope (ED), Near Syncope (ED) Is patient prescribed a controlled substance at d/c from ED?: No Referrals: Carina Law [Primary Care Provider] - 1-2 days Time of Disposition: 01:50
[2023-06-28 22:41] LABS: Basophils % (A) 0 %; Eosinophils # (A) 0.2 k/uL (0-0.7); Eosinophils % (A) 2 %; HCT 41.6 % (39.0-53.0); HGB 14.4 gm/dL (13.0-17.5); Lymphocytes # (A) 2.1 k/uL (1.0-4.8); Lymphocytes % (A) 23 %; MCH 30.5 pg (25.0-35.0); MCHC 34.6 g/dL (31.0-37.0); MCV 88.1 fL (80.0-100.0); Mean Platelet Volume 8.2; Monocytes # (A) 0.6 k/uL (0-1.0); Monocytes % (A) 7 %; Neutrophils # (A) 6.4 k/uL (1.3-7.7); Neutrophils % (A) 67 %; Platelet Count 189 k/uL (150-450); RBC 4.72 m/uL (4.30-5.90); RDW 12.9 % (11.5-15.5); WBC 9.5 k/uL (3.8-10.6)
[2023-06-28 22:44] VITALS: RESP 18; TEMP 98.6
[2023-06-28 22:50] LABS: ALT 37 U/L (4-49); AST 28 U/L (17-59); African American GFR (CKD) 90 (>60 ml/min/1.73 sqM); Albumin 4.6 g/dL (3.5-5.0); Alkaline Phosphatase 84 U/L (38-126); Anion Gap 10 mmol/L; Blood Urea Nitrogen 15 mg/dL (9-20); Calcium 9.5 mg/dL (8.4-10.2); Carbon Dioxide 28 mmol/L (22-30); Chloride 102 mmol/L (98-107); Glucose 105 mg/dL (74-99); Lipase 136 U/L (23-300); Magnesium 1.8 mg/dL (1.6-2.3); Non-African American GFR(CKD) 77 (>60 ml/min/1.73 sqM); Sodium 140 mmol/L (137-145); Total Bilirubin 0.5 mg/dL (0.2-1.3); Total Protein 7.2 g/dL (6.3-8.2)
[2023-06-28 22:58] LABS: NT-Pro-B-Type Natriuretic Pept <20 pg/mL
--- NOTE | 2023-06-28 23:09 | XR ---
EXAM: XR Chest, 1 View CLINICAL HISTORY: ITS.REASON XR Reason: chest pain TECHNIQUE: Frontal view of the chest. COMPARISON: No relevant prior studies available. FINDINGS: Lungs: Unremarkable. No consolidation. Pleural space: Unremarkable. No pneumothorax. Heart: Unremarkable. No cardiomegaly. Mediastinum: Unremarkable. Normal mediastinal contour. Bones/joints: Unremarkable. No acute fracture. IMPRESSION: Normal chest x-ray.
[2023-06-29] LABS: Prothrombin Time 10.9 sec (10.0-12.5)
[2023-06-29 00:39] LABS: Partial Thromboplastin Time 19.8 sec (22.0-30.0)
[2023-06-29 02:31] VITALS: BP 112/83; PULSE 73
== END 2023-06-29 02:04 | disposition home or self-care (01) ==
LOC: EC 22:08
DX: R55 Syncope and collapse (principal); I49.9 Cardiac arrhythmia, unspecified; I50.9 Heart failure, unspecified; Z91.041 Radiographic dye allergy status
CPT/HCPCS: 36415; 71045; 80053; 83690; 83735; 83880; 84484; 85025; 85379; 85610; 85730; 93005; 99291

== ENCOUNTER 2023-08-10 07:00 | Day surgery (SDC) | payer BC, OTHER ==
[2023-08-10 07:46] VITALS: RESP 16; TEMP 97.1
[2023-08-10] MEDS: IV FLUID CONTINUATION 1,000 ML IV ONE (07:49)
[2023-08-10] MEDS: SODIUM CHLORIDE 0.9% 1,000 ML IV SCH (08:08)
[2023-08-10] MEDS: ceFAZolin 1,000 MG VIAL IVPB ONE (09:19)
[2023-08-10] MEDS: LIDOCAINE 1% INJ 10MG/ML (20 ML MDV) SQ ONE (09:19)
[2023-08-10 09:42] VITALS: BP 116/80
--- NOTE | 2023-08-10 10:15 | P.PCN ---
Description of Procedure: Procedure: Insertion of Linq loop recorder Indication: Syncope CONSENT:I have discussed the risks, benefits and alternative therapies for the above-mentioned procedure. The patient has indicated understanding and acceptance of the risks and procedures discussed. PROCEDURE: Patient was brought to the catheterization lab in a fasting state. Patient was prepped and draped in the usual fashion. 1% lidocaine was used to anesthetize the area of the left third intercostal space. Using the loop recorder incision device, a small 0.5 cm incision was made in the left 3rd intercostal space. Next the Linq loop recorder was deployed in the 3rd intercostal space subcutaneously using the insertion tool. Thresholds were checked and were excellent at 0.5 V. Next the incision was closed using Dermabond. Steristrips were placed over the incision and the procedure was completed. The patient tolerated the procedure well. The patient was transported to the post cath holding area in stable condition. Linq loop recorder serial number: [id number]
== END 2023-08-10 10:07 ==
LOC: CATHEP 07:00
PROVIDERS: ATTEND Internal Medicine
DX: R55 Syncope and collapse (principal); E78.5 Hyperlipidemia, unspecified; I10 Essential (primary) hypertension; Z79.899 Other long term (current) drug therapy
CPT/HCPCS: 33285; C1764; J0690; J2001

== ENCOUNTER 2024-08-02 08:27 | Day surgery (SDC) | payer BC ==
[2024-08-01 10:47] VITALS: BMI 26.2
[2024-08-02] MEDS ORDERED: LACTATED RINGERS 1,000 ML IV SCH (08:49)
[2024-08-02 09:02] VITALS: TEMP 97
[2024-08-02] MEDS: LACTATED RINGERS 1,000 ML IV ONE (09:11)
[2024-08-02] MEDS ORDERED: PROPOFOL 10 MG/ML 20 ML VIAL IV ONE (09:42)
--- NOTE | 2024-08-02 09:49 | P.GSHP ---
History of Present Illness H&P Date: 08/02/24 Chief Complaint: Screening colonoscopy This is a 53-year-old male presents today for screening colonoscopy. Patient denies any significant GI complaints. Past Medical History Past Medical History: Hyperlipidemia, Hypertension, Renal Disease, Skin Disorder, Sleep Apnea/CPAP/BIPAP, Syncope Additional Past Medical History / Comment(s): Unable to tolerate cpap, hemorroids, kidney stones, possible cardiomyopathy. NO CURRENTLY ON ANY MEDS History of Any Multi-Drug Resistant Organisms: None Reported Past Surgical History: Orthopedic Surgery, Tonsillectomy Additional Past Surgical History / Comment(s): lt eye surgery, lt shoulder sx removed inch clavicle and has titaium pin in place", lt wrist sx,bx on scalp- neg, stomach polyps, deviated septum sx, egd/colonoscpy. LOOP REORDER 08/10/23 Past Anesthesia/Blood Transfusion Reactions: Previous Problems w/ Anesthesia Additional Past Anesthesia/Blood Transfusion Reaction / Comment(s): Difficulty getting "numb" with local anesthesia and with anesthesia states he needs alot of medication. Pt has woken during wrist surgery. Pt's mother also resistant to anesthetic agents. Smoking Status: Former smoker - Past Family History Father Family Medical History: Unable to Obtain Mother Family Medical History: Hypertension Additional Family Medical History / Comment(s): diverticulisits Sister(s) Additional Family Medical History / Comment(s): ibs Medications and Allergies Home Medications Medication Instructions Recorded Confirmed Type No Known Home Medications 08/01/24 08/01/24 History Allergies Allergy/AdvReac Type Severity Reaction Status Date / Time Iodinated Contrast Media Allergy gets red Verified 08/01/24 10:33 [Iodinated Contrast Media - and hot IV Dye] Surgical - Exam Vital Signs Temp Pulse Resp BP Pulse Ox 97 F L 62 18 125/92 99 08/02/24 09:01 08/02/24 09:01 08/02/24 09:01 08/02/24 09:01 08/02/24 09:01 - General well developed, well nourished - Eyes PERRL - ENT normal pinna - Neck no masses - Respiratory normal expansion - Cardiovascular Rhythm: regular - Abdomen Abdomen: soft, non tender Assessment and Plan Plan: Will perform screening colonoscopy
--- NOTE | 2024-08-02 10:06 | P.OP ---
Date of Procedure: 08/02/24 Preoperative Diagnosis: Screening colonoscopy Postoperative Diagnosis: Mild diverticulosis Procedure(s) Performed: Colonoscopy Anesthesia: MAC Surgeon: Reinaldo Pantoja Pathology: none sent Condition: stable Disposition: PACU Description of Procedure: Patient was placed on the endoscopy table in the lateral position. He received IV sedation. Digital rectal exam was performed. This revealed no abnormalities. The flexible colonoscope was then placed patient Anaspaz throughout the entire colon. The ileocecal valve was visualized. The cecum, ascending and transverse colon appeared normal. In the descending and sigmoid colon there was mild diverticulosis. The scope was then brought back to the r ectum this appeared normal. Scope withdrawn for the patient.
[2024-08-02 10:23] VITALS: RESP 16
[2024-08-02 10:37] VITALS: BP 118/75; PULSE 58
== END 2024-08-02 10:49 | disposition home or self-care (01) ==
LOC: ORWHC2ENDO 08:27
PROVIDERS: ATTEND Surgery
DX: Z12.11 Encounter for screening for malignant neoplasm of colon (principal); K57.30 Diverticulosis of large intestine without perforation or abscess without bleeding; E78.5 Hyperlipidemia, unspecified; I10 Essential (primary) hypertension; G47.30 Sleep apnea, unspecified; Z87.891 Personal history of nicotine dependence
CPT/HCPCS: 45378; J2704